=== PATIENT | female | born 1960 | race Caucasian/White ===

== ENCOUNTER 2016-05-26 08:46 | Emergency (ER) | payer OTHER ==
[~2016-05-26] VITALS: Ht 172.7 cm; Wt 55.0 kg
[~2016-05-26 08:46] MED LIST: ASPI-973 PO; CHOL500011 PO; CLON0.1T PO; DOCU-41 PO; ESOM20CA28 PO; GABA-500 PO; LEVO100T97 PO; MAGN400T39 PO; MORP-32 PO; MULT-1073 PO; ONDA8TAB10 PO; POTA10CA42 PO; SENN-133 PO; SOMA350 PO; TIZA4TAB4 PO; TRIA0.2595 PO; VIT1TABL83 PO
[2016-05-26 08:50] VITALS: BP 177/123; PULSE 88; RESP 12; O2SAT 97
[2016-05-26] MEDS ORDERED: MORP15TA PO (09:09)
--- NOTE | 2016-05-26 09:12 | ED.REPORT ---
HPI-Extremity Problem Upper Date of Service May 26, 2016 ED Provider: Ryan Sage MD The patient is a 55 year old female with history of chronic pain, GERD, hypertension, hypothyroidism, and cyclical vomiting, who presents to the emergency department complaining of left upper extremity pain. She had a ground level fall last night and injured her left arm. The patient was seen at [facility] yesterday and scheduled to have surgery today but she left AMA because she didn't like it. When asked why she states, "it's just a horrible hospital." At this time she still complains of severe pain to her left upper extremity. She denies any other injuries. The patient has history of multiple falls and is currently being worked up for this. Nursing Notes Stated Complaint: POSSIBLE BROKEN ARM Chief Complaint: Extremity Trauma Nursing Notes Reviewed: Yes Allergies: Coded Allergies: hydrocodone (Verified Allergy, Intermediate, Hives, 03/31/16) Scheduled Aspirin (Aspirin) 81 Mg Tablet 162 MG PO DAILY Cholecalciferol (Vitamin D3) (Vitamin D3) 5,000 Unit Tablet 5,000 UNIT PO DAILY Clonidine (Clonidine) 0.1 Mg Tablet 0.1 MG PO DAILY Docusate Sodium (Colace) 100 Mg Capsule 100 MG PO BID Esomeprazole Magnesium (Nexium) 20 Mg Capsule.dr 20 MG PO DAILY Gabapentin (Gabapentin) 100 Mg Capsule 200 MG PO QPM Levothyroxine (Synthroid) 100 Mcg Tablet 200 MCG PO DAILY Magnesium Oxide (Magnesium) 400 Mg Tablet 400 MG PO DAILY Morphine Sulfate (Morphine Sulfate) 15 Mg Tablet 15 MG PO TID Multivits-Min/FA/Lycopene/Lut (Centrum Silver Tablet) 1 Each Tablet 1 EACH PO DAILY Potassium Chloride (Potassium Chloride) 10 Meq Capsule.er 10 MEQ PO DAILY TAKE WITH FOOD Vit B Comp/C/FA/Iron/Vit E (Vitamin B Complex Tablet) 1 Each Tablet 1 EACH PO DAILY Scheduled PRN Carisoprodol (Carisoprodol) 350 Mg Tablet 350 MG PO TID PRN PRN For Spasm Morphine Sulfate ER (Morphine Sulfate ER) 15 Mg Tablet 15 MG PO TID PRN PRN For Pain Ondansetron ODT (Ondansetron ODT) 8 Mg Tab.rapdis 8 MG PO BID PRN PRN For Nausea Tizanidine (Tizanidine) 4 Mg Tablet 4 MG PO TID PRN PRN For Spasm Triazolam (Halcion) 0.25 Mg Tablet 0.25 MG PO HS PRN PRN For Insomnia oxyCODONE-Acetaminophen 5-325 mg (oxyCODONE-Acetaminophen 5-325 mg) 1 Each Tablet 1 TAB PO Q6H PRN PRN For Pain General Time Seen by MD: 09:04 Chief Complaint Shoulder injury left, Arm injury left Hx Obtained From: Patient, Spouse Arrived By: Walk-in Onset Occurred: Yesterday Symptom Duration: Since onset Caused by: Fall on ground Location: : Arm left: Shoulder left Quality: Painful Severity: Current: Pain level 10 out of 10 Severity: Maximum: Pain level 10 out of 10 Exacerbated by: Movement Relieved by: Immobilization Recent Healthcare: Recent doctor visit, Recent hospitalization Similar Sx Previous: No Past Medical History Past Medical History Hx of cyclical vomiting Hypertension Hypothyroidism Chronic Back Pain GERD Arthritis She is currently being worked up for multiple falls Enlarged heart yadav and a heart murmur Past Surgical History Thyroidectomy Knee surgery x7 Breast reduction L4/5 surgery Reports: Reports: Back/neck surgery Family History Reports: Coronary artery disease, Stroke Smoking History Current Some Day Smoker Social History Other Social History: Good social support, , Local resident Ambulatory Status Independent Review of Systems Musculoskeletal: Reports: Extremity pain, Extremity swelling, Joint pain, Joint swelling Neurologic: Denies: Change LOC, Headache, Syncope Complete sys rev & neg: except as marked. Physical Exam Initial Vital Signs Vital Signs (First) Date Time Temp Pulse Resp B/P Pulse Ox O2 Delivery O2 Flow Rate FiO2 05/26/16 08:50 36.6 88 12 177/123 97 05/26/16 12:38 Room Air Initial VS: Reviewed ENT: Mucous membranes moist, Conjunctiva normal, No scleral icterus Respiratory: Breath sounds normal, Clear to auscultation, No respiratory distress Cardiovascular: Regular rate & rhythm, Heart sounds normal, Intact distal pulses Abdomen / GI: Soft, Non-tender, No guarding, No rebound, No distention Lower Extremities: Vascular intact, Neuro intact, No swelling, No tenderness Skin: Warm, Dry, No cyanosis Neurologic: Alert, Oriented, Nonfocal Psychiatric: Mood/affect normal, Behavior normal, Normal thought content General/Constitutional: Awake, Alert, Cooperative Neck: Atraumatic, Supple, Full range of motion, No swelling, Non-tender, No midline vertebral tend Upper Extremity / MS: Neurologic intact, Vascular intact Deformity and swelling of left shoulder. She is in a sling. Her fingertips are well perfused. Good radial pulses. Sensation intact. Sensation over the deltoid region. RUE is atraumatic. Head / Eyes: Atraumatic, Normocephalic, PERRL, EOMI Interpretation & Diagnostics Lab Results Interpretation Test 05/26/16 11:15 Hold Purple Top Tube Received (Received) Hold Blue Top Tube Received (Received) Hold Red Top Tube Received (Received) Hold [place] Top Tube Received (Received) X-Ray Interpretation Xray Interpretation: IMPRESSION: Partial visualization of a proximal metadiaphyseal junction diagonal acute fracture involving the left humerus. Frontal projection is not available for review. Dictated by: Dick Styles M.D. on 05/26/2016 at 10:42 X-Ray Ordered: Humerus left Interpretation / Wet Read by: Interpret - Radiologist Re-Eval/Medical Decision Med Decision/Clinical Course The patient is a 55 year old female with history of chronic pain, GERD, hypertension, hypothyroidism, and cyclical vomiting, who presents to the emergency department complaining of left upper extremity pain. She had a ground level fall last night and injured her left arm. The patient was seen at [facility] yesterday and scheduled to have surgery today but she left AMA because she didn't like it. When asked why she states, "it's just a horrible hospital." At this time she still complains of severe pain to her left upper extremity. She denies any other injuries. Here in the emergency department the patient is afebrile with stable vital signs and examination as above. She is neurovascularly intact in the affected extremity without any evidence of head trauma. Patient's pain was well managed with oral oxycodone and hydromorphone. Plain films demonstrated no left proximal humerus fracture. Findings as above were reviewed with orthopedic surgeon tone regulator. It is not felt at this time that the patient requires admission or immediate operative intervention. Recommended discharge with sling and outpatient follow-up with surgeon in [facility] near their home. Patient reported significant symptomatic improvement. She remained neurovascularly intact. Sling was placed. She was offered admission for pain management however she declined stating that she felt better. She was provided with prescription for pain medications and will follow up with orthopedic surgeon in [place]. Follow-up and return precautions were reviewed in detail and she was discharged in good condition. Source of Hx: Old records Re-Evaluation/Progress : Time of Eval: 12:10 Re-Evaluation/Progress Note: Rechecked the patient. Discussed orthopedic consult and plan for discharge. Consultation #1: Consulted With: Orthopedic Requested Call at: 10:51 Deep Fryer Assembler: Agrees with eval, Agrees with plan Note: spoke with the OR nurse. Dr. Harp will call back. Consultation #2: Referral / Consult Name: Jhony Harp MD Consulted With: Orthopedic Call Returned at: 11:51 Deep Fryer Assembler: Agrees with eval, Agrees with plan Note: He recommends discharge with sling and followup with ortho in [place]. Counseled Regarding: Diagnosis, Need for follow-up, When/why to return to ED Discharge & Departure Impression: Primary Impression: Proximal humerus fracture Encounter type: initial encounter Fracture type: closed Fracture morphology : other fracture Fracture alignment: displaced Laterality: left Qualified Code: S42.292A - Other displaced fracture of upper end of left humerus, initial encounter for closed fracture Additional Impressions: Posttraumatic pain Noncompliance by refusing service Disposition: Home Discharge Condition All VS Reviewed: Yes Condition: Stable Additional Instructions: Thank you for seeking care at the emergency room. Our primary goal today in the ED was to evaluate you for any life-threatening conditions. Your evaluation was reassuring. You will be discharged with a prescription for pain medication that you can take in addition to your morphine. Make sure to wear the sling until you are re-evaluated. You can try applying ice and/or heat packs to the painful areas if this helps. You should follow-up with an orthopedic surgeon. We have given you a referral to Dr. Harp. You could also call the [facility] [place] at [phone] to schedule an appointment closer to your home. You should return to the ED immediately if you develop increased pain or swelling, numbness, tingling, discoloration, fevers, vomiting, or any other concerning signs or symptoms. Thank you for letting us partake in your care today. Narcotic Pain Medicine You have been prescribed a narcotic for pain relief. These drugs are usually combined with acetaminophen (Tylenol#3, Percocet, Darvocet, Anexsia, Vicodin) or aspirin (Empirin#3, Percodan, Synalogs-DC) for increased effect. Narcotics act on the central nervous system to reduce pain; they also impair mental alertness and physical abilities. We advise you not to drink alcohol, drive a car, or operate dangerous equipment when you are taking these drugs. You can lessen stomach irritation from your medicine by taking it with meals or a full glass of water. Common side effects of narcotics are: Nausea and vomiting, heartburn, constipation, dizziness, sleepiness, and mood changes. If you have bothersome side effects or symptoms of an allergic reaction (itching, hives, rash), stop taking your medicine and call your doctor or the emergency room right away. Please keep your narcotic medicine well out of the reach of children. Referrals: Nica Galaviz MD (PCP) Jhony Harp MD Attestation Portions of this note were transcribed by Krysta Jasmine. I, Dr. Sage personally performed the history, physical exam and medical decision-making; I reviewed and confirmed the accuracy of the information in the transcribed note. Signed by: Britton Gonzalez, 05/26/2016 at 1220. copies to: Nica Galaviz MD; Jhony Harp MD, Beck O MD May 26, 2016 09:12 Krysta Jasmine May 26, 2016 09:15
--- NOTE | 2016-05-26 10:45 | DRSVH ---
PROCEDURE: X-RAY LEFT HUMERUS, MINIMUM TWO VIEWS ([id number]) INDICATIONS: TRAUMA FALL LAST NIGHT TECHNIQUE: 2 views of the humerus were acquired. COMPARISON: None. FINDINGS: Bones: No dislocations. No suspicious bony lesions. There is a diagonal fracture through the proxi mal metadiaphyseal junction of the left humerus, mildly angulated, partially visualized Soft tissues: No suspicious soft tissue calcifications. IMPRESSION: Partial visualization of a proximal metadiaphyseal junction diagonal acute fracture invol ving the left humerus. Frontal projection is not available for review. Dictated by: Dick Styles M.D. on 05/26/2016 at 10:42 Approved by: Dick Styles M.D. on 05/26/2016 at 10:44
[2016-05-26] MEDS ORDERED: HYDROmorphone 0.5 mg/0.5 mL iSecure Syringe IVPUSH PRN (11:05)
[2016-05-26] MEDS ORDERED: OXYC1TAB24 PO (12:15)
[2016-05-26 12:38] VITALS: BP 134/101; PULSE 93; RESP 22; O2SAT 96
[2016-05-26] MEDS ORDERED: HYDROmorphone 0.5 mg/0.5 mL iSecure Syringe ONE ×2 (12:47)
[2016-05-26] MEDS ORDERED: HYDROmorphone 1 mg/mL Inj ONE (12:47)
[2016-06-02] MEDS ORDERED: ATEN100T PO (10:13)
[2016-06-02] MEDS ORDERED: LACT1CAP75 PO (10:13)
[2016-06-02] MEDS ORDERED: MILK175C4 PO (10:13)
[2016-06-02] MEDS ORDERED: NORT25CA PO (10:13)
[2016-06-02] MEDS ORDERED: NORT10CA PO (10:13)
[2016-06-02] MEDS ORDERED: LINA145C PO (10:13)
[2016-06-02] MEDS ORDERED: FELB400T2 PO (10:13)
[2016-06-02] MEDS ORDERED: FURO-129 PO (10:13)
[2016-06-02] MEDS ORDERED: ACET1TAB12 PO (10:13)
[2016-06-02] MEDS ORDERED: PROC10TA PO (10:13)
[2016-06-02] MEDS ORDERED: BIOT5000 PO (10:13)
== END 2016-05-26 12:38 | disposition home or self-care (01) ==
LOC: SED 08:46 → MERGE 08:46 → SED 12:38
DX: S42.292A Other displaced fracture of upper end of left humerus, initial encounter for closed fracture (principal); W01.0XXA Fall on same level from slipping, tripping and stumbling without subsequent striking against object, initial encounter; Y93.89 Activity, other specified; Y99.8 Other external cause status; Y92.013 Bedroom of single-family (private) house as the place of occurrence of the external cause; I10 Essential (primary) hypertension; K21.9 Gastro-esophageal reflux disease without esophagitis; E03.9 Hypothyroidism, unspecified; F17.200 Nicotine dependence, unspecified, uncomplicated; I51.7 Cardiomegaly; Z91.19 Patient's noncompliance with other medical treatment and regimen; Z88.5 Allergy status to narcotic agent
CPT/HCPCS: 73060; 96374; 99284; J1170

== ENCOUNTER 2016-06-04 09:59 | Day surgery (SDC) | payer OTHER ==
[2016-06-04] VITALS (8 sets, daily range): BP systolic 97–147; BP diastolic 74–97; PULSE 64–79; RESP 13–22; O2SAT 91–100
[~2016-06-04] VITALS: Ht 174 cm; Wt 62.5 kg
[~2016-06-04 09:59] MED LIST changes: +ACET1TAB12 PO; +ATEN100T PO; +BIOT5000 PO; -CHOL500011 PO; -CLON0.1T PO; +CeFAZolin Inj 2 GM in IV Premix 1 EACH IV ONE; -DOCU-41 PO; +FELB400T2 PO; +FURO-129 PO; -GABA-500 PO; +LACT1CAP75 PO; +LINA145C PO; +MILK175C4 PO; +MORP15TA PO; -MULT-1073 PO; +NORT10CA PO; +NORT25CA PO; -ONDA8TAB10 PO; -POTA10CA42 PO; +PROC10TA PO; -SENN-133 PO; -VIT1TABL83 PO
[2016-06-04] MEDS ORDERED: fentaNYL-PF 50 mCg/mL 2 mL Inj ONE (10:00)
[2016-06-04] MEDS: Lactated Ringer's 1,000 ML IV SCH ×3 (10:05→13:30)
[2016-06-04] MEDS ORDERED: CeFAZolin Inj 2 gm / 50mL D5W IV ONE (10:33)
--- NOTE | 2016-06-04 10:42 | PCM.HPANE ---
Patient Data Date of Service: Jun 04, 2016 Surgeon Admitting Provider: Attending Provider:Hao Ortiz MD Primary Care Physician:Nica Del Cid MD Other Provider:Cassidy Boone Anesthesia Reason for Visit Left Proximal Humerus Fracture Ht/WT & BMI Height (Feet): 5 Height (Inches): 8.5 Weight (Kilograms): 62.5 Body Mass Index 20.00 Allergies Coded Allergies: hydrocodone (Verified Allergy, Severe, Hives, 06/02/16) Past Anesthesia History Anesthesia History: Denies:: Anesthesia Reactions, Malignant Hyperthermia Diabetes History Hx Diabetes?: No MRSA MRSA: No Medications Blood Thinner: Aspirin Hypertension Medication: Yes (LASIX) Home Meds Incl Beta Justin: Yes (ATENOLOL) Active Scripts Magnesium Oxide (Magnesium)400 Mg Hhwhhd482 Mg PO DAILY #20 TABLET Prov:Lane,Eddie Alen DO 01/26/16 Reported Medications [tyleno;] No Conflict Ejfwm250 Mg PO prn PRN For Pain 06/04/16 [vit d] No Conflict Check Po Daily 06/04/16 [vit b] No Conflict Check Po Daily 06/04/16 Multivitamin (Multi Vitamin Daily)1 Each Tablet1 Each PO DAILY 30 Days Ref 0 06/04/16 Clonazepam (Klonopin)0.5 Mg Tablet0.5 Mg PO TID PRN For Anxiety Ref 0 06/04/16 Prochlorperazine Maleate (Prochlorperazine)10 Mg Ugvbpn69 Mg PO HS PRN For Nausea/Vomiting Ref 0 06/02/16 Lactobacillus Combo No.10 (Probiotic)1 Each Capsule1 Each PO DAILY 06/02/16 Nortriptyline 25 Mg Nixsknr70 Mg PO HS 06/02/16 Nortriptyline 10 Mg Gbrcanl18 Mg PO HS 06/02/16 Milk Thistle Seed Extract (Milk Thistle)175 Mg Rlvxnur493 Mg PO DAILY 06/02/16 Linaclotide (Linzess)145 Mcg Akrvzva985 Mcg PO DAILY 06/02/16 Furosemide (Lasix)20 Mg Makorv36 Mg PO DAILY 30 Days Ref 0 06/02/16 Felbamate 400 Mg Fhtciw759 Mg PO TID 06/02/16 Biotin 5,000 Mcg Tab.rapdis5,000 Mcg PO DAILY 06/02/16 Atenolol 100 Mg Giugsy365 Mg PO 5x day Ref 0 06/02/16 Morphine Sulfate 15 Mg Iqbqhv97 Mg PO Q4H PRN PRN 05/26/16 Levothyroxine (Synthroid)100 Mcg Vrqvqy962 Mcg PO DAILY Ref 0 02/23/16 Aspirin 81 Mg Jtxkiq844 Mg PO DAILY Ref 0 01/24/16 Esomeprazole Magnesium (Nexium)20 Mg Capsule.dr20 Mg PO DAILY Ref 0 01/24/16 Tizanidine 4 Mg Tablet4 Mg PO HS PRN For Spasm #360 01/24/16 Morphine Sulfate ER 15 Mg Wpejhm01 Mg PO BID PRN For Pain #90 01/24/16 Carisoprodol 350 Mg Jkrjpi733 Mg PO QID PRN For Spasm #120 01/24/16 Triazolam (Halcion)0.25 Mg Tablet0.25 Mg PO HS PRN For Insomnia #30 01/24/16 Discontinued Reported Medications Acetaminophen/Codeine 300-30mg (Tylenol/Codeine #3)1 Each Tablet1 Tablet PO Q6H PRN Pain Ref 0 06/02/16 Clonidine 0.1 Mg Tablet0.1 Mg PO DAILY Ref 0 02/04/16 Cholecalciferol (Vitamin D3) (Vitamin D3)5,000 Unit Tablet5,000 Unit PO DAILY 01/24/16 Vit B Comp/C/FA/Iron/Vit E (Vitamin B Complex Tablet)1 Each Tablet1 Each PO DAILY 01/24/16 Multivits-Min/FA/Lycopene/Lut (Centrum Silver Tablet)1 Each Tablet1 Each PO DAILY 01/24/16 Ondansetron ODT 8 Mg Tab.rapdis8 Mg PO BID PRN For Nausea 01/24/16 Gabapentin 100 Mg Skfrwhm876 Mg PO QPM #300 01/24/16 Discontinued Scripts oxyCODONE-Acetaminophen 5-325 mg 1 Each Tablet1 Tab PO Q6H PRN For Pain #12 TABLET Prov:Ryan Sage MD 05/26/16 Potassium Chloride 10 Meq Capsule.er10 Meq PO DAILY #20 CAPSULE Ref 0 TAKE WITH FOOD Prov:Eddie Lane DO 01/26/16 Docusate Sodium (Colace)100 Mg Vxjcwig169 Mg PO BID #60 CAPSULE Ref 0 Prov:Eddie Lane DO 01/26/16 History History of ENT Problems?: Yes HEENT History: Denies:: Cataracts Dysphagia (c/o feeling lump like food/pills/water gets stuck) Sinus Problem Hx of Heart Problems?: Yes Cardiovascular History: Positive for:: Chest Pain Edema (abdominal swelling from cirrohsis DX) Hypertension (Been on anti-HTN since age 16) Irregular Heartbeat (OCC PVC) Denies:: Cardiac Surgery Congestive Heart Failure Heart Murmur (ECHO 02/2016 EF 65-70% W/O SIG. VALVE DISEASE) Pacemaker Thrombophlebitis Valvular Heart Disease Other Cardiac History: HX OF ANEMIA Hx of Respiratory Problem?: Yes Respiratory History: Positive for:: Dyspnea (TOMAS) Denies:: Asthma COPD Chest Surgery Emphysema Hemoptysis Pneumonia Tuberculosis Use of C-PAP Machine Hx Neurologic Problems?: Yes Neurological History: Positive for:: CVA (REPORTED BY PT) Dizziness (Ongoing with dehydration and acities) Headaches (Cluster headaches) Denies:: Alzheimer's Disease Dementia Parkinson's Disease Seizures Other Neurological Pertinent: CHRONIC PAIN MANAGED BY DR. NICA DEL CID/KYRIE Hx of GI Problems?: Yes Gastrointestinal History: Positive for:: Gastroesphageal Reflux Heartburn Denies:: Diverticulitis Gastrointestinal Bleeding Hepatitis (exposed to hepatitis C through family) Hiatal Hernia Rectal Bleeding Other GI Pertinent History: HX CYCLICAL VOMITING,INTRACTABLE ABD PAIN Hx of Problems?: No Female Hx: Denies:: Currently (S/P C/S) Endometriosis Pelvic Inflammatory Problems with Breasts? (S/P BREAST REDUCTION) Skin History: Denies:: History Skin Disorders? Pressure Ulcers Hx Musculoskeletal Problems?: Yes Musculoskeletal History: Positive for:: Joint Replacement (Left knee 7 surgeries) Musculoskeletal Trauma (S/P KNEE SURGERIES X7 INCL. LT ACL/PCL RPR) Osteoarthritis Denies:: Back Injury (C/OF CHRONIC BACK PAIN) Hx of Psycho/Social Problems?: No Psycho Social History: Denies:: Anxiety Bipolar Disorder Hx Depression Suicide Attempt Hx Surgeries?: Yes (Left knee surgery times 7,L4-5 SURGERY,BREAST REDUCTION, THYROIDECTOMY) Hx Any Other Health Problems?: Yes Other History: Positive for:: Hospitalization Thyroid Disease (S/P THYROIDECTOMY) Denies:: Cancer Endocrine Disease (C/OF FEVERS & COLD INTOLERANCE) History Blood Transfusions: Denies:: Blood Transfuse Reaction Blood Transfusions Hx Diabetes: No Hx Alcohol Use: YesHx Substance Use: No Smoking Status: Current Some Day Smoker Have You Smoked inLast 12 mo: Yes ("couple here and there") Stop/Bang Treated for Sleep Apnea?: No Do You Have a CPAP Machine?: No S-Snoring: Do You Snore Loudly: No T-Tired: feel tired, fatigued: Yes O-Obsered: Observed not breath: Yes P-Blood Pressure: treated: Yes B- Body Mass Index > 35 kg/m2: No A- Age over 50: Yes N- Neck Large Circumference: No G- Gender Male: No TOLU Total Score: 4 TOLU Risk Assessment: High Risk, =/>3 Yes Risk Assessment Category Category 1A: Patient has history of documented sleep apnea, and HAS NOT received any narcotic, sedative or anesthesia administration during this stay. Category 1B: Patient has history of documented sleep apnea, and HAS received any narcotic , sedative or anesthesia administration during this stay Category 2: Patient has SUSPECTED Obstructive Sleep Apnea, and HAS received any narcotic , sedative or anesthesia administration during this stay. Category 3: Patient has SUSPECTED Obstructive Sleep Apnea and HAS NOT received narcotic, sedative or anesthesia administration during this stay. Category 4: Outpatient in Procedural Areas with known sleep apnea or who screen positive for High Risk via the STOP/BANG questionnaire. Exam Exam Vital Signs Vital Signs Date Time Temp Pulse Resp B/P Pulse Ox O2 Delivery O2 Flow Rate FiO2 06/04/16 10:34 35.7 64 16 145/97 97 Room Air General Appearance: Alert, Oriented X3, Cooperative, No Acute Distress HEENT/AIRWAY: MP 2 Lungs: Clear to Auscultation Heart: Exam Unremarkable, Normal S1, Normal S2 Meds/Labs/Diagnostics Admission Meds Current Medications Lactated Ringer's (Lr) 1,000 ml @ 120 mls/hr Q8H20M IV Last administered on t 10:05; Start 06/04/16 at 05:00; Stop 06/04/16 at 13:19 Plan Impression Patient chart reviewed, patient interviewed and anesthestic plan with risks, benefits, and alternatives discussed, and informed consent obtained. NPO Status: >8 hours ASA Physical Status: ASA2 Mod Systemic Disease Anesthetic Plan: GA, Regional Block (supraclavicular block), Ultra Sound Bene/Risks/Altern/Consents: Yes HP Complete Prior to Induction: Yes Stefan Mccauley DO Jun 04, 2016 10:42
[2016-06-04] MEDS ORDERED: TYLENO PO (11:08)
[2016-06-04] MEDS ORDERED: MULT-1018 PO (11:08)
[2016-06-04] MEDS ORDERED: vit d PO (11:08)
[2016-06-04] MEDS ORDERED: CLON0.5T PO (11:08)
[2016-06-04] MEDS ORDERED: vit b PO (11:08)
[2016-06-04] MEDS ORDERED: Lactated Ringer's 500 ML IV PRN (12:03)
[2016-06-04] MEDS ORDERED: Lactated Ringer's 1,000 ML IV SCH (12:03)
[2016-06-04] MEDS ORDERED: Dexamethasone 4 mg/mL Inj IVPUSH PRN (12:05)
[2016-06-04] MEDS ORDERED: MetoCLOpramide 5 mg/mL 2 mL Inj IVPUSH PRN (12:05)
[2016-06-04] MEDS ORDERED: Atropine 0.4 mg/mL Inj IVPUSH PRN (12:05)
[2016-06-04] MEDS ORDERED: EPHEDrine Sulfate 50 mg/mL Inj IVPUSH PRN (12:05)
[2016-06-04] MEDS ORDERED: HYDROmorphone 1 mg/mL Inj IVPUSH PRN (12:05)
[2016-06-04] MEDS ORDERED: Phenylephrine 10,000 mCg/mL Inj IVPUSH PRN (12:05)
[2016-06-04] MEDS ORDERED: Ondansetron 2 mg/mL 2 mL Inj IVPUSH PRN (12:05)
[2016-06-04] MEDS ORDERED: fentaNYL-PF 50 mCg/mL 2 mL Inj IVPUSH PRN (12:05)
[2016-06-04] MEDS ORDERED: Labetalol 5 mg/mL 4 mL Inj IV PRN (12:05)
[2016-06-04] MEDS ORDERED: Bacitracin 50,000 unit Inj IRRIGATION ONE (12:16)
[2016-06-04] MEDS ORDERED: Ropivacaine-PF 0.5% 30 mL Inj INJ ONE (13:09)
[2016-06-04] MEDS ORDERED: Ketorolac 15 mg/mL Inj IVPUSH ONE (14:35)
[2016-06-04] MEDS ORDERED: oxyCODONE-Acetamin 5-325 mg Tablet PO PRN (14:35)
--- NOTE | 2016-06-04 14:48 | PCM.ORTHOP ---
Orthopedic Operative Report Date of Service: Jun 04, 2016 Pre Operative Diagnosis Left proximal humerus fracture Post Operative Diagnosis Same Procedure Left proximal humerus open reduction internal fixation Surgeon Surgeon: Hao Ortiz MD Assistants: Keanu Encinas Indication for Procedure Left proximal humerus fracture Findings Left comminuted proximal humerus fracture with 100% apposition Details of Procedure Indications: Ofelia Faulkner is a 55-year-old female sustained a left proximal humerus fracture on May 26 2016. A clear explanation was given to the patient regarding the condition present, and the available conservative and surgical options. It was emphasized that the risks and benefits of surgery include but are not limited to infection, wound healing problems, damage to adjacent structures such as nerves, blood vessels and tendons, halfway disability and pain, arthritis, hypersensitivity, deep vein thrombosis, pulmonary embolism, broken hardware, failure of surgery, need for further procedures at time of surgery or later, cast related problems, loss of limb or life. The patient was given an explanation and the patient voiced understanding of what to expect after the procedure or surgery, the limitations in activities of daily living, the likely duration for post operative recovery and the instructions that are to be followed. At the end the patient was invited to seek clarification or ask further questions but there were none. The patient voiced understanding of the entire consultation. Description of Operation: Patient taken to operating room and transferred to operating table in supine position. Time out was performed with both anesthesia and faculty present to confirm details of case to be performed. After time out performed, patient placed under general anesthesia and endotracheal tube secured into place. The patient was positioned in the beach chair position. The position was checked to ensure all bony prominences adequately padded. The arm and shoulder were prepped and draped in the usual sterile fashion. Preoperative antibiotics were administered. A standard anterolateral approach was made using the cephalic vein as a landmark for the interval. Careful blunt dissection was carried through the interval. Shoulder retractors were placed to identify the fracture lateral along the proximal humerus. Care was taken to not damage nearby neurovascular structures. The fracture appeared predominantly oblique and comminuted as well as 100% apposition and shortening along the neck. The proximal portion of the pectoralis major was released from the humerus to allow better exposure and placement of the proximal humerus locking plate. A Rongeur and irrigation were used to clean the fracture site. The fracture was carefully reduced using abduction, external rotation, and placement of the plate to act as a lateral buttress with alignment verified in both AP and lateral views with the C-arm. The Synthes 3.5 mm proximal humerus locking plate was placed over the lateral aspect of the proximal humerus and secured proximally with K-wires and one cortical screw distally. Alignment was again verified with fluoroscopy to ensure adequate reduction. The proximal locking holes were then drilled and filled in standard fashion and two more cortical screws were placed distally along the shaft to secure plate placement. Fluoroscopy confirmed anatomic reduction of the fracture in orthogonal views ensuring that no screws penetrated the joint. The wound was thoroughly irrigated by bulb irrigation. Hemostasis was obtained with electrocautery. The interval was closed. The subcutaneous space was closed with interrupted 2-0 Vicryl suture. The skin was closed with 3-0 stratofix suture. Hard copy radiographs confirmed adequate reduction and placement of hardware. The patient was extubated without difficulty and transferred to the PACU in stable condition. I was present for the entire procedure. Description of Findings: displaced comminuted proximal humerus neck fracture Grafts, Implants: Implants-See Implant Record Complications There were no periprocedural complications identified. Condition Stable Anesthetic Administered: GA Catheters: None Output, Estimated Blood Loss: 300 Blood Admin during surgery: No Surgical Cast or Splint: Shoulder Immobilizer Surgical Specimen Removed: No Specimen sent to Pathology: No copies to: Hao Ortiz MD, Christopher L MD Jun 04, 2016 14:48
--- NOTE | 2016-06-04 16:01 | PCM.ANEP1 ---
Post Anesthesia Phase 1 PACU Phase 1 Assessment Date of Service: Jun 04, 2016 Vital Signs Vital Signs Date Time Temp Pulse Resp B/P Pulse Ox O2 Delivery O2 Flow Rate FiO2 06/04/16 15:15 36.1 79 18 140/87 97 Nasal Cannula 2 06/04/16 15:15 36.3 69 14 142/97 96 Room Air 06/04/16 15:05 69 18 121/90 91 Room Air 06/04/16 15:00 72 13 109/80 94 Room Air 06/04/16 14:57 74 17 121/81 98 Room Air 06/04/16 14:52 36.2 77 22 97/74 100 Simple Mask 8 06/04/16 10:50 35.7 64 16 145/97 97 Room Air 06/04/16 10:34 35.7 64 16 145/97 97 Room Air Anesthetic Administered: GA Level of Alertness: Awake, talking LAI's with Equal Strength: No (c/w L brachial plexus block) Pain: No Nausea or Vomiting: No Oxygen Delivery: Room Air, Simple Mask (6l for transport) Lungs: Clear to Auscultation Dermatome Level: Full Sensation (c/w L brachial plexus block) Stefan Mccauley DO Jun 04, 2016 16:01
--- NOTE | 2016-06-04 16:33 | PCM.ANEP2 ---
Post Anesthesia Evaluation ASA/CMS Post Anesthesia Date of Service: Jun 04, 2016 VS in Patient's Normal Range?: Yes Resp Stable; Airway Patent?: Yes CV Function & Hydration Stable: Yes Mental Status Recovered?: Yes Pain control Satisfactory?: Yes N/V Control Satisfactory?: Yes Stefan Mccauley DO Jun 04, 2016 16:33
== END 2016-06-04 23:59 | disposition home or self-care (01) ==
LOC: MERGE 09:59 → SAS 09:59
PROVIDERS: ATTEND Orthopaedic Surgery
DX: S42.292A Other displaced fracture of upper end of left humerus, initial encounter for closed fracture (principal); I10 Essential (primary) hypertension; R06.00 Dyspnea, unspecified; K21.9 Gastro-esophageal reflux disease without esophagitis; D64.9 Anemia, unspecified; M19.90 Unspecified osteoarthritis, unspecified site; F17.210 Nicotine dependence, cigarettes, uncomplicated; W18.30XA Fall on same level, unspecified, initial encounter; Y93.01 Activity, walking, marching and hiking; Y92.019 Unspecified place in single-family (private) house as the place of occurrence of the external cause; Y99.8 Other external cause status; Z79.82 Long term (current) use of aspirin; Z96.652 Presence of left artificial knee joint
CPT/HCPCS: 23615; 76001; C1713; J0690; J1885; J2250; J2795; J3010; J7120